=== PATIENT | female | born 1980 | race Caucasian/White ===

== ENCOUNTER → 2020-05-31 | Outpatient (CLI) | payer BC ==
[~2020-05-31] MED LIST: FERROUS SU325 MG/TAB PO; MOTRIN 800800 MG/TAB PO; PERCOCET 325 MG1 TA2 PO; PROAIR HFA0.09 MG/AC IH
== END ==
LOC: MC.RAD 07:15
DX: Z12.31 Encounter for screening mammogram for malignant neoplasm of breast (principal); N64.89 Other specified disorders of breast

== ENCOUNTER → 2020-06-07 | Outpatient (CLI) | payer BC | LOC: MC.RAD 12:51 | DX: N64.89 Other specified disorders of breast (principal) ==